=== PATIENT | female | born 1955 | race Hispanic/Latino ===

== ENCOUNTER 2024-05-09 09:37 | Emergency (ER) | payer OTHER ==
[~2024-05-09] VITALS: Ht 165.1 cm; Wt 95.3 kg
[2024-05-09] MEDS: ondanSETRON 4MG TABLET PO ONE (09:54)
--- NOTE | 2024-05-09 09:54 | ERN ---
ED Note History of Present Illness Stated Complaint: HEADACHE Chief Complaint: Head Injury Time Seen by MD: 09:46 Dictation: Is a 68-year-old female she comes in right-sided headache pain. She said she was walking and it was dark and then she had bumped her head into the boiler. No bumps or scrapes lesions on this right side but she says she did still does have some right-sided head pain since then no chest pain or shortness of breath no falls trips traumas Allergies: Coded Allergies: No Known Drug Allergies (Unverified Allergy, Unknown, 05/09/24) Past Medical History Past Medical History: High Cholesterol Surgical History: Hysterectomy Review of System Dictation Constitutional: Negative for fever,chills, and weight loss Eyes: Negative for injury, pain,redness, and discharge ENT: Negative for injury,pain or swelling Cardiovascular: Negative for chest pain, palpitations, and edema Respiratory: Negative for shortness of breath, cough, and wheezing, Abdomen/GI: Negative for abdominal pain, nausea, vomiting, diarrhea, and constipation Back: Negative for injury and pain : Negative for injury, bleeding and discharge MS/Extremity: Negative for injury and deformity Skin: Negative for rash, and discoloration Neuro: Negative for headache, weakness, numbness, tingling, and seizure Psych: Negative for suicide ideation, homicidal ideation, and hallucinations Initial Vital Sign VS Vital Signs Date Time Temp Pulse Resp B/P (MAP) Pulse Ox O2 Delivery O2 Flow Rate FiO2 05/09/24 09:38 98.6 79 20 149/103 98 Room Air 0 05/09/24 10:07 21 Physical Exam Dictation General: awake, alert, NAD Head/Face: Normocephalic, atraumatic Eyes: PERRL, EOMI, vision at baseline ENT: oral cavity clear, TMs clear, no signs of infection Neck: Trachea midline, supple, no nuchal rigidity Cardiovascular: RRR, normal S1/S2, No MRGs, no JVD Respiratory: CTAB, no respiratory distress, No rales or wheezes Abdomen: Soft, non-tender, non-distended, normal bowel sounds, no guarding or rebound. Skin: Warm, dry, normal turgor, no rash MS/Extremity: Pulses equal, no cyanosis, neurovascular intact, FROM Neuro: COAx4, GCS 15, strength 5/5, CN 2-12 intact, normal cerebellar exam, normal gait, Psych: Normal behavior, mood, and affect normal Results (Laboratory/Radiology) Laboratory/Radiology Laboratory Tests Test 05/09/24 10:37 White Blood Count 8.3 K/uL (4.8-10.8) Red Blood Count 5.39 MIL/uL (4.00-5.50) Hemoglobin 15.0 g/dL (12.0-16.0) Hematocrit 46.3 % (36-48) Mean Corpuscular Volume 85.9 fL (79-99) Mean Corpuscular Hemoglobin 27.8 pg (27.0-33.0) Mean Corpuscular Hemoglobin Concent 32.4 g/dL (32.0-36.0) Red Cell Distribution Width 13.7 % (11.0-15.5) Platelet Count 258 K/uL (130-400) Mean Platelet Volume 9.7 fL (7.5-10.5) Immature Granulocyte % (Auto) 0.5 % (0-1) Neutrophils (%) (Auto) 56.0 % (40.0-77.0) Lymphocytes (%) (Auto) 35.1 % (21.0-51.0) Monocytes (%) (Auto) 6.0 % (3.0-13.0) Eosinophils (%) (Auto) 1.9 % (0.0-8.0) Basophils (%) (Auto) 0.5 % (0.0-5.0) Neutrophils # (Auto) 4.7 K/uL (1.8-7.7) Lymphocytes # (Auto) 2.9 K/uL (1.0-4.8) Monocytes # (Auto) 0.5 K/uL (0.1-1.0) Eosinophils # (Auto) 0.16 K/uL (0.00-0.70) Basophils # (Auto) 0.04 K/uL (0.00-0.20) Absolute Immature Granulocyte (auto 0.04 K/uL (0-1) Nucleated Red Blood Cells 0.0 % (0.0-0.19) Sodium Level 141 mmol/L (136-145) Potassium Level 4.0 mmol/L (3.5-5.1) Chloride Level 105 mmol/L (101-111) Carbon Dioxide Level 31 mmol/L (21-32) Blood Urea Nitrogen 18 mg/dL (7-18) Creatinine 0.9 mg/dL (0.5-1.0) Glomerular Filtration Rate Calc 71 mL/min (>90) Random Glucose 105 mg/dL (70-105) Total Calcium 9.1 mg/dL (8.5-10.1) Total Bilirubin 0.4 mg/dL (0.2-1.0) Aspartate Amino Transf (AST/SGOT) 15 U/L (10-37) Alanine Aminotransferase (ALT/SGPT) 26 U/L (12-78) Alkaline Phosphatase 105 U/L (50-136) Troponin I High Sensitivity 6 ng/L (4-50) Total Protein 7.1 g/dL (6.0-8.3) Albumin 3.3 g/dL (3.5-5.0) L ED Course ED Course Orders Procedure Category Date Status Time Ct Head/Brain W/O CT 05/09/24 Resulted Contrast 09:44 Cbc With Differential LAB 05/09/24 Complete 09:44 Comprehensive LAB 05/09/24 Complete Metabolic Panel 09:44 Troponin I High LAB 05/09/24 Complete Sensitivity 09:44 12 Lead Ekg Tracing- EKG 05/09/24 Complete Technical 09:44 Chest 1vw RAD 05/09/24 Resulted 09:44 Hydrocodone/Apap PHA 05/09/24 Complete 5/325 ([place] 5/325mg) 10:00 Ondansetron 4mg PHA 05/09/24 Complete Tablet (Zofran 4mg 10:00 Current Medications Medications (Trade) Dose Ordered Sig/Albin Route PRN Reason Start Time Stop Time Status Last Admin Dose Admin Acetaminophen/ Hydrocodone Bitart (NORco 5/325MG) 1 tab ONCE ONCE PO 05/09/24 10:00 05/09/24 10:01 DC 05/09/24 09:56 Ondansetron HCl (zoFRAN 4MG TABLET) 4 mg ONCE ONCE PO 05/09/24 10:00 05/09/24 10:01 DC 05/09/24 09:54 Vital Signs Date Time Temp Pulse Resp B/P (MAP) Pulse Ox O2 Delivery O2 Flow Rate FiO2 05/09/24 10:07 98.6 78 20 145/99 98 Room Air* 0 21 05/09/24 09:38 98.6 79 20 149/103 98 Room Air 0 Medical Decision Making MDM MDM: Differential diagnosis: Considered intracranial bleed. Labs tests imaging within normal limits. Stable for outpatient management Rationale: Tests considered and ordered secondary to shared decision making include: Previous outside records reviewed: Old ER visits. Risk of complication and/or morbidity or mortality of patient management: None Medications-Per medication reconciliation Need for hospitalization: Patient does not meet criteria for hospitalization. Need for emergency major/minor surgery: No There are no social concerns with this patient. Prescription drug management Prescriptions will include symptomatic care Patient's prior external medical records from other ER visits were reviewed by me as indicated. Prior testing and results from previous visits were reviewed. Prior tests were taken into account with medical decision making and resource utilization, independent historian/historians were used to obtain complete medical history. I independently interpreted the test that were performed, results were reviewed by me and considered findings on radiology if ordered. Medical management and examination interpretation discussions were had by me with other qualified healthcare professionals as indicated for the patient's care. DX & DISP Disposition: Discharge Departure Impression: Primary Impression: Headache Condition: Stable Referrals: SELF,REFERRAL (PCP) YANIV CISNEROS MD May 09, 2024 09:54
[2024-05-09] MEDS: HYDROcodone/APAP 5/325 1 TAB TABLET PO ONE (09:56)
--- NOTE | 2024-05-09 10:20 | HMCIMG ---
CHEST 1VW REASON: PAIN COMPARISON: None. FINDINGS: Single view of the chest was obtained. Lungs are clear. Heart size is normal. There is no pulmonary vascular congestion. Mediastinum and bony thorax appear unremarkable. IMPRESSION: 1. Normal single view chest x-ray.
--- NOTE | 2024-05-09 10:22 | HMCIMG ---
Exam: NONCONTRAST CT BRAIN REASON: HEAD INJURY. COMPARISON: None. TECHNIQUE: Images are obtained from vertex to the skull base. The exam was performed without IV contrast. FINDINGS: There is normal appearing brain parenchyma. There are no focal mass lesions. There is is no evidence of intracranial hemorrhage or acute stroke. Ventricles and sulci appear normal. Posterior fossa and brainstem structures are unremarkable. Paranasal sinuses and remaining extracranial soft tissues appear normal as well. IMPRESSION: 1. Normal noncontrast CT brain. CT was performed with one or more following dose reduction techniques: automated exposure control, adjustment of the mA and kv according to patient's size, or use of a iterative reconstruction technique.
--- NOTE | 2024-05-09 10:23 | EKG ---
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
[2024-05-09 10:49] LABS: BASOPHILS # (AUTO) 0.04 K/uL (0.00-0.20); BASOPHILS % (AUTO) 0.5 % (0.0-5.0); EOSINOPHILS # (AUTO) 0.16 K/uL (0.00-0.70); EOSINOPHILS % (AUTO) 1.9 % (0.0-8.0); HEMATOCRIT 46.3 % (36-48); IMMATURE GRANULOCYTE ABSOLUTE 0.04 K/uL (0-1); LYMPHOCYTES # (AUTO) 2.9 K/uL (1.0-4.8); LYMPHOCYTES % (AUTO) 35.1 % (21.0-51.0); MEAN CORPUSCULAR HEMOGLOBIN 27.8 pg (27.0-33.0); MEAN CORPUSCULAR HGB CONC 32.4 g/dL (32.0-36.0); MEAN CORPUSCULAR VOLUME 85.9 fL (79-99); MONOCYTES # (AUTO) 0.5 K/uL (0.1-1.0); NEUTROPHILS # (AUTO) 4.7 K/uL (1.8-7.7); PLATELET COUNT (AUTO) 258 K/uL (130-400); RED BLOOD CELL COUNT(AUTO) 5.39 MIL/uL (4.00-5.50); RED CELL DISTRIBUTION WIDTH 13.7 % (11.0-15.5); WHITE BLOOD COUNT (AUTO) 8.3 K/uL (4.8-10.8)
[2024-05-09 10:56] LABS: CREATININE 0.9 mg/dL (0.5-1.0)
[2024-05-09 11:01] LABS: ALBUMIN 3.3 g/dL (3.5-5.0); BILIRUBIN,TOTAL 0.4 mg/dL (0.2-1.0); TOTAL PROTEIN, SERUM 7.1 g/dL (6.0-8.3)
[2024-05-09 11:42] VITALS: BP 137/90; PULSE 76; RESP 18; TEMP 98.6; O2SAT 98
== END 2024-05-09 11:47 | disposition home or self-care (01) ==
LOC: EDH 09:37
DX: R51.9 Headache, unspecified (principal); E78.00 Pure hypercholesterolemia, unspecified; Z90.710 Acquired absence of both cervix and uterus
CPT/HCPCS: 99285; 70450; 71045; 84484; 80053; 85025; 36415; 93005; Q0162

== ENCOUNTER 2025-01-20 16:44 | Emergency (ER) | payer OTHER ==
[~2025-01-20] VITALS: Ht 165.1 cm; Wt 99.8 kg
[2025-01-20] MEDS: TETRACAINE HCL 0.5% 4 ML OPHTH SOLN OP ONE (17:49)
[2025-01-20] MEDS: FLUORESCEIN SODIUM 1 STRIP STRIP OP ONE (17:49)
[2025-01-20 18:36] VITALS: BP 152/90; PULSE 86; RESP 16; TEMP 98.6; O2SAT 96
[2025-01-20] MEDS ORDERED: TOBR5DRO67 OP (18:36)
--- NOTE | 2025-01-20 18:39 | ERN ---
ED Note History of Present Illness Stated Complaint: LEFT EYE PAIN Chief Complaint: Eye Problems Time Seen by MD: 17:04 Time Seen by Midlevel: 17:04 Dictation: The patient is a 69-year-old female with a history of hyperlipidemia who presents to the emergency department with complaints of left eye pain onset three weeks. Patient denies any eye trauma, denies any visual disturbances, denies any fevers. Reports that three weeks ago she was seen by ophthalmology and prescribed erythromycin and prednisone for corneal abrasion. Allergies: Coded Allergies: No Known Drug Allergies (Unverified Allergy, Unknown, 05/09/24) Home Meds Active Scripts Tobramycin/Dexamethasone (Tobradex St Eye Drops) 0.3 %-0.05 % Drops.susp, 1 DROP OP QID, #5 ML 0 Refills Prov:FRANCE GONZALEZ 01/20/25 Past Medical History Past Medical History: High Cholesterol Surgical History: None RN Note Reviewed/Agreed w/PFSH: Yes Review of System Dictation Constitutional: Negative for fever,chills, and weight loss Eyes: Negative for injury, redness, and discharge positive for left eye pain ENT: Negative for injury,pain or swelling Cardiovascular: Negative for chest pain, palpitations, and edema Respiratory: Negative for shortness of breath, cough, and wheezing, Abdomen/GI: Negative for abdominal pain, nausea, vomiting, diarrhea, and constipation Back: Negative for injury and pain : Negative for injury, bleeding and discharge MS/Extremity: Negative for injury and deformity Skin: Negative for rash, and discoloration Neuro: Negative for headache, weakness, numbness, tingling, and seizure Psych: Negative for suicide ideation, homicidal ideation, and hallucinations Initial Vital Sign VS Vital Signs Date Time Temp Pulse Resp B/P (MAP) Pulse Ox O2 Delivery O2 Flow Rate FiO2 01/20/25 16:47 98.8 89 13 155/102 95 Room Air 01/20/25 17:11 0 21 Physical Exam Dictation Vital Signs reviewed General Appearance: Alert, oriented x 3, no acute distress, well developed, nourished. Head and Face: non-traumatic. Eyes: PERRL, pink conjunctivas, eyelid no trauma, anterior chamber with arcus senilis. Ears: Pinnas intact and no signs of trauma or erythema ear canals clear and no discharge TM no erythema Nose: No discharge, no bleeding. Oropharynx: Mouth normal, tongue pink. pharynx clear,no erythema, tonsils no exudates, no abscesses noted, mucous membrane moist Neck: Supple, non-tender, no thyromegaly, no masses, no JVD, no bruits Breast:Deferred Chest:No tenderness, no crepitus, no paradoxical movement, no retractions Lungs:Clear, well-ventilated, symmetric, no rales, no wheezing, no rhonchi, no stridor, good breath sounds bilaterally Heart: Regular rate, regular rhythm, no murmur, no gallops Vascular: no peripheral edema, Abdomen: Soft, positive bowel sounds, nondistended, no guarding, nontender, no rebound, no masses no hepatomegaly, no splenomegaly, no Acosta's sign, no hernias. Rectal: Deferred Genital: Deferred Neurological: Normal speech, motor function intact, sensory function intact Musculoskeletal: Neck nontender, full range of motion, back nontender, full range of motion, Extremities: nontender, full range of motion Skin: Color pink, dry, no turgor, no rash, no lacerations, no abrasions, no contusions. Lymphatic: Deferred Results (Laboratory/Radiology) Labs Reviewed?: Yes ED Course ED Course Orders Procedure Category Date Status Time Tetracaine Hcl PHA 01/20/25 Complete (Pontocaine 0.5% 18:00 Fluorescein Sodium PHA 01/20/25 Complete (Pciod-Z-Vtvor At) 18:00 Current Medications Medications (Trade) Dose Ordered Sig/Albin Route PRN Reason Start Time Stop Time Status Last Admin Dose Admin Fluorescein Sodium (Zkqho-H-Zomrk At) 1 strip ONCE ONCE OP 01/20/25 18:00 01/20/25 18:01 DC 01/20/25 17:49 Tetracaine HCl (Pontocaine 0.5% Ophth Soln) 1 OR 2 DROPS ONCE ONCE OP 01/20/25 18:00 01/20/25 18:01 DC 01/20/25 17:49 Vital Signs Date Time Temp Pulse Resp B/P (MAP) Pulse Ox O2 Delivery O2 Flow Rate FiO2 01/20/25 18:36 98.6 86 16 152/90 96 Room Air* 0 21 01/20/25 17:11 98.6 88 16 155/100 96 Room Air* 0 21 01/20/25 16:47 98.8 89 13 155/102 95 Room Air Medical Decision Making MDM The patient is a 69-year-old female with a history of hyperlipidemia who presents to the emergency department with complaints of left eye pain onset three weeks. Patient denies any eye trauma, denies any visual disturbances, denies any fevers. Reports that three weeks ago she was seen by ophthalmology and prescribed erythromycin and prednisone for corneal abrasion. Patient presents with three weeks of left eye pain. Denies any visual deficits. Reports she does not use any eye contacts. Patient denies any eye trauma. Physical exam patient has no significant swelling or erythema surrounding on, denies headache or neurological deficits. On exam does questionable corneal abrasion to 9 oclock. IOP was 16 mmHG bilaterally. Patient with no visual deficits. Pain improved after medication administration. Patient will be disch arged to follow up with the Ophthalmology. Differential diagnosis: Corneal abrasion, orbital cellulitis, shingles Need for hospitalization: Patient does not meet criteria for hospitalization. There are no social concerns with this patient. DX & DISP Disposition: Discharge Departure Impression: Primary Impression: Left eye pain Additional Impression: History of corneal abrasion Condition: Stable Scripts Tobramycin/Dexamethasone (Tobradex St Eye Drops) 0.3 %-0.05 % Drops.susp 1 DROP OP QID, #5 ML 0 Refills Prov: FRANCE GONZALEZ 01/20/25 Additional Instructions: Please follow up with Ophthalmology as soon as possible. If anything worsens please return to ER. [facility] [address], [facility] [id number] FOLLOW-UP WITH PRIMARY CARE PROVIDER IN 1 TO 2 DAYS. TAKE MEDICATIONS DIRECTED HERE IN THE EMERGENCY ROOM. OKAY TO CONTINUE HOME MEDICATIONS UNLESS OTHERWISE DISCUSSED DURING YOUR VISIT IN THE EMERGENCY ROOM TODAY. RETURN TO YOUR NEAREST EMERGENCY ROOM IF SYMPTOMS WORSEN OR IF THERE IS NO IMPROVEMENT. CALL 911 IF YOU NEED IMMEDIATE ASSISTANCE. TAKE TYLENOL [id number] NEEDED AND IF NO CONTRAINDICATIONS ARE PRESENT. INCREASE ORAL HYDRATION. A WOUND CULTURE OR URINE CULTURE WAS ORDERED HERE IN THE EMERGENCY ROOM DEPARTMENT PLEASE FOLLOW-UP WITH PRIMARY CARE PROVIDER AND ADVISE THEM TO GET REPEAT PORTS FROM OUR FACILITY. IF YOU HAD ANY SUDHA WRAP/SPLINTS THAT WERE APPLIED HERE, PLEASE DO NOT REMOVE THEM UNTIL YOU SEE YOUR PRIMARY CARE OR SPECIALTY. Referrals: ORLANDO MCGILL MD (PCP) Time of Disposition: 18:39 I have reviewed the case, and I agree with, Diagnosis and Plan RADHA HINKLE INK MAKER Jan 20, 2025 18:39
== END 2025-01-20 18:44 | disposition home or self-care (01) ==
LOC: EDH 16:44
DX: H57.12 Ocular pain, left eye (principal); E78.00 Pure hypercholesterolemia, unspecified
CPT/HCPCS: 99283; 96372; J1885

== ENCOUNTER → 2025-02-08 | Outpatient (CLI) | payer OTHER ==
[~2025-02-08] MED LIST: GADOTERATE MEGLUMINE 10 MMOL/20 ML VIAL IV ONE; TOBR5DRO67 OP
--- NOTE | 2025-02-14 16:21 | HMCIMG ---
MR ORBITS WITH AND WITHOUT INTRAVENOUS CONTRAST Clinical Details: H57.12 Ocular pain, left eye Technique: Multisequence, multiplanar magnetic resonance images of the orbits were obtained with and without intravenous contrast. Series acquired include sagittal T1 SE, axial T2 FSE, axial T2 FLAIR, axial DWI, axial T2* GRE (trauma or bleed), axial T1 FSE, coronal T2 FSE, coronal T1 FSE 3mm, coronal STIR 3mm, post-contrast coronal T1 FS 3mm, post-contrast axial T1 FS 3mm, and post-contrast coronal T1 SE sequences. Apparent diffusion coefficient maps were also obtained. Findings: Orbits: The globes are intact with no intra- or extraconal lesions identified. Bones: No evidence of acute fracture or aggressive osseous lesions. Sinuses: The paranasal sinuses appear normal with no significant abnormality detected. Extracranial Soft Tissues: No abnormal soft tissue swelling or mass is present. IMPRESSION: 1. No acute orbital or intracranial findings. /[place]
== END | disposition home or self-care (01) ==
LOC: RAH 12:11
PROVIDERS: ATTEND Family Medicine
DX: H57.12 Ocular pain, left eye (principal)
CPT/HCPCS: 70543; A9575